=== PATIENT | male | born 2000 | race African-American/Black ===

== ENCOUNTER 2021-12-11 19:38 | Emergency (ER) | payer OTHER ==
[2021-12-11] MEDS ORDERED: LODINE400 MG PO (21:20)
== END 2021-12-11 21:37 | disposition home or self-care (01) ==
LOC: FER 19:38
DX: R07.89 Other chest pain (principal)
CPT/HCPCS: 71046

== ENCOUNTER 2022-01-06 05:26 | Emergency (ER) | payer OTHER ==
[~2022-01-06 05:26] MED LIST: LODINE400 MG PO
[2022-01-06] MEDS ORDERED: ZYPREXA 2.5MG2.5 MG PO (05:56)
[2022-01-06] MEDS ORDERED: ATIVAN1 MG PO (05:56)
[2022-01-06 06:25] LABS: BASOPHIL 0.2 % (0-2); EOSINOPHIL 0.7 % (0-5); HCT 45.7 % (42.0-52.0); HGB 15.7 g/dl (13.2-18.0); LYMPHOCYTE 34.5 % (15-48); MCH 28.7 pg (25.0-31.0); MCHC 34.4 g/dL (32.0-36.0); MCV 83.5 fL (78.0-100.0); MONOCYTE 9.2 % (0-12); MPV 10.9 fL (6.0-9.5); NEUTROPHIL 55.4 % (41-80); NRBC 0; PLT 189 K/uL (150-400); RBC 5.47 M/uL (4.70-6.00); RDW 11.3 % (11.5-14.0); WBC 4.5 K/uL (4.0-10.5)
[2022-01-06 07:20] LABS: ALBUMIN 4.2 g/dL (3.4-5.0); BILIRUBIN - TOTAL 1.6 mg/dL (0.2-1.0); BUN/CREAT RATIO (CALC) 13.4 RATIO; CREATININE 1.12 mg/dL (0.67-1.17); GLOBULIN (CALCULATION) 3.2 g/dL; MAGNESIUM 1.7 mg/dL (1.8-2.4); POTASSIUM 3.4 mmol/L (3.5-5.1); TOTAL PROTEIN 7.4 g/dL (6.4-8.2)
== END 2022-01-06 10:09 | disposition home or self-care (01) ==
LOC: FER 05:26
PROVIDERS: Internal Medicine
DX: F41.9 Anxiety disorder, unspecified (principal); R00.2 Palpitations
CPT/HCPCS: 36415; 80053; 83735; 84439; 84443; 84484; 85025; 93005; J3475; J7050

== ENCOUNTER 2022-01-11 02:21 | Emergency (ER) | payer OTHER ==
[~2022-01-11 02:21] MED LIST changes: +ATIVAN1 MG PO; +ZYPREXA 2.5MG2.5 MG PO
[2022-01-11 03:45] LABS: BASOPHIL 0.5 % (0-2); EOSINOPHIL 0.5 % (0-5); HCT 45.3 % (42.0-52.0); HGB 15.8 g/dl (13.2-18.0); LYMPHOCYTE 30.8 % (15-48); MCH 28.9 pg (25.0-31.0); MCHC 34.9 g/dL (32.0-36.0); MCV 82.8 fL (78.0-100.0); MONOCYTE 7.7 % (0-12); MPV 11.2 fL (6.0-9.5); NEUTROPHIL 60.2 % (41-80); NRBC 0; PLT 205 K/uL (150-400); RBC 5.47 M/uL (4.70-6.00); RDW 11.3 % (11.5-14.0); WBC 3.9 K/uL (4.0-10.5)
[2022-01-11 03:57] LABS: ALBUMIN 4.4 g/dL (3.4-5.0); BILIRUBIN - TOTAL 2.4 mg/dL (0.2-1.0); BUN/CREAT RATIO (CALC) 15.4 RATIO; CREATININE 1.04 mg/dL (0.67-1.17); FT4 (FREE T4) 1.1 ng/dL (0.76-1.46); POTASSIUM 3.8 mmol/L (3.5-5.1); TOTAL PROTEIN 7.4 g/dL (6.4-8.2)
== END 2022-01-11 04:45 | disposition home or self-care (01) ==
LOC: FER 02:21
PROVIDERS: Internal Medicine
DX: F41.9 Anxiety disorder, unspecified (principal); R20.2 Paresthesia of skin; E80.6 Other disorders of bilirubin metabolism
CPT/HCPCS: 36415; 72072; 80053; 84439; 84443; 85025